=== PATIENT | female | born 1955 | race Caucasian/White ===

== ENCOUNTER 2021-02-04 12:39 | Outpatient (REF) | payer OTHER, SELFPAY ==
[2021-02-04 13:01] LABS: MANUAL DIFF FLAG NO
[2021-02-04 13:46] LABS: Basophils Percent Auto 0.7 % (0-2); Eosinophils Percent Auto 0.7 % (0-4); Hematocrit 36.8 % (37.0-47.0); Hemoglobin 12.2 g/dl (12.0-16.0); Imm Gran Abs Auto 0.01 X10*3/uL (0.00-0.03); Imm Gran Pct Auto 0.3 % (0.0-0.4); Lymphocytes Absolute Auto 0.8 X10*3/uL (1.2-4.9); Lymphocytes Percent Auto 26.8 % (20-40); Mean Corpuscular HGB Conc 33.2 g/dl (31.0-35.0); Mean Corpuscular Volume 96.6 fL (80.0-98.0); Mean Platelet Volume 9.9 fL (9.4-12.3); Monocytes Absolute Auto 0.3 X10*3/uL (0.1-1.2); Monocytes Percent Auto 11.3 % (2-11); Neutrophils Absolute Auto 1.8 x10*3/uL (2.0-8.3); Neutrophils Percent Auto 60.2 % (45-73); Platelet Count 226 X10*3/uL (160-400); Red Blood Count 3.81 X10*6/uL (4.20-5.50)
[2021-02-04 14:26] LABS: Anion Gap 12 (12-20); Blood Urea Nitrogen 10 mg/dL (9-16); Calcium 9.6 mg/dL (8.4-10.2); Carbon Dioxide 27 mmol/L (22-29); Chloride 105 mmol/L (96-108); Estimated Glomerular Filt Rate > 60; Glucose Random 97 mg/dL (60-115); Potassium 4.2 mmol/L (3.3-5.1); Sodium 140 mmol/L (135-145)
[2021-02-04 15:24] LABS: T4 Thyroxine 7.1 ug/dL (4.5-12.0)
[2021-02-04 16:23] LABS: Folate > 20.0 ng/mL (> or = 4.0); Vitamin B12 720 pg/mL (200-900)
== END 2021-02-04 12:40 | disposition home or self-care (01) ==
LOC: HO.LAB 12:39
PROVIDERS: PCP Internal Medicine; Visit Provider Psychiatry & Neurology Neurology
DX: G31.84 Mild cognitive impairment of uncertain or unknown etiology (principal)
CPT/HCPCS: 36415; 80048; 82607; 82746; 84436; 84443; 85025

== ENCOUNTER 2024-09-10 10:04 | Outpatient (REF) | payer MEDICARE, SELFPAY ==
--- OUTSIDE RECORDS SUMMARY | 2024-09-10 10:43 | XMS_ITS | Clinical Summary ---
Author Organization [facility] Address [address], [place] Phone Care Team Providers Care Direct Care Worker Name Role Phone Venkata Dent MD Primary Care Provider [phone] Allergies Active Allergy Reactions Criticality Noted Date Comments Penicillins 02/10/2006 Medications calcium carbonate/vitamin D3 (CALCIUM + D ORAL) Take by mouth daily. Active diphenhydramine HCl (BENADRYL ALLERGY ORAL) Take by mouth. Active cyanocobalamin (VITAMIN B-12) 100 mcg tablet Take 1,000 mcg by mouth daily. 9 Active ibuprofen (ADVIL,MOTRIN) 200 mg tablet Take 200 mg by mouth every 6 hours as needed. Active memantine (NAMENDA) 10 mg tablet TAKE 1 TABLET BY MOUTH TWICE DAILY 3 Active PNV no.95/ferrous fum/folic ac ( MULTIVITAMINS ORAL) Take by mouth. Active ascorbic acid (VITAMIN C ORAL) 1 tablet occ Active QUEtiapine (SEROquel) 25 mg tablet Take 1 tablet (25 mg total) by mouth 2 (two) times a day. Active aspirin-acetamino phen-caffeine (EXCEDRIN MIGRAINE) 250-250-65 mg per tablet Take 1 tablet by mouth every 6 (six) hours if needed for headaches. Active nystatin-triamcin olone (MYCOLOG II) ointment Apply a thin layer to affected area nightly 15 g 1 5 Active nystatin-triamcin olone (MYCOLOG II) ointment Apply a thin layer to affected area nightly 15 g 4 08/14/19 25 Discontin ued(Reord er) Active Problems Problem Noted Date Diagnosed Date OAB (overactive bladder) 02/06/2024 Assessment & Plan (02/06/2024 1:02 PM EST): Continue to follow with Urology. Feeling of incomplete bladder emptying Overview (12/24/2023): Last Assessment & Plan: I recommended she try double voiding. No evidence of prolapse. She declined referral to Urology for now. If this continues to be an issues and is not improved after starting LS treatment, can refer to Urology. Hemorrhoidal skin tag 04/25/2023 Overview (12/24/2023): Last Assessment & Plan: Reassured not worrisome. Lichen sclerosus 04/25/2023 Overview (12/24/2023): Last Assessment & Plan: Reviewed findings with patient. Well controlled. I reviewed the importance of regular maintenance topical steroid use to prevent symptoms, further scarring, and squamous cell cancer of the vulva. I also explained the importance of regular follow up to ensure she has no evidence of precancerous or cancerous changes and that she is not having side effects from her medication. I reviewed areas of application and amount of medication to use. She will continue nightly Mycolog and will add AM Vaseline or coconut oil as a skin barrier to avoid occasional daytime burning. Assessment & Plan (02/06/2024 10:08 AM EST): Reviewed findings with patient. Currently well controlled. I reviewed the importance of regular maintenance topical steroid use and at least yearly follow up. She will continue nightly Mycolog. I did encourage her to add a skin barrier to help with occasional skin burning during urination. She will try this. Microscopic hematuria 04/25/2023 Overview (12/24/2023): Last Assessment & Plan: Will repeat UA today, as well as cytology and culture. Referred to Urology to follow up on this and also her urgency and frequency. She was informed that she should hear back in 1-2 weeks with an appointment date. If not, she should call back to our office and inquire on getting this arranged. She voiced understanding and agreed. DNR (do not resuscitate) 05/10/2022 Late onset Alzheimer's demen tia without behavioral disturbance, psychotic disturbance, mood disturbance, or anxiety ([facility] V24, [facility] V28) 05/10/2022 Elevated BP without diagnosis of hypertension Assessment & Plan (02/06/2024 1:02 PM EST): Referred to PCP for evaluation and management Kyphoscoliosis 09/07/2018 Night sweats 09/07/2018 Vitamin D deficiency 12/29/2016 Paresthesia of hand, bilateral 12/23/2015 Osteoporosis 12/03/2014 Overview (12/24/2023): Refuses med. Takes Ca, vit D Blood in stool 01/18/2011 Overview (12/24/2023): x1 Migraines 08/21/2010 Fel[place]'s syndrome [place] [place] [facility] [place]) 01/14 Kyphosis deformity of spine 07/05/2005 Immunizations Name Administration Dates Next Due H1N1 Inj Preservative Free 03/11/2009 Influenza Quadravalent, MDCK , 0.5ml, preservative free (Flucelvax) 6mo and older 12/03/2020,11/16/2018 Influenza Quadravalent, MDCK , 0.5ml, with preservative (Flucelvax) 6mo and older 11/21/2021,11/24/2019,12/04/2017,12/23,11/29/2015 Influenza trivalent, with pr eservative (Fluzone; Afluria) 6mo and older 12/09/2012,12/06/2010,12/18/2009,03/11,12/28/2007,12/24/2006,02/10/2006 Influenza, Unspecified 12/27/2022,11/29/2015, Pfizer (ages 12 & older) Biv alent, COVID-19 12/28/2021 Pneumococcal conjugate 20 va lent (Prevnar 20, PCV 20) 2mo and older 02/10/2023 Pneumococcal polysaccharide 23 valent (Pneumovax 23) 2yo and older 02/21/2007 Tdap Tetanus diptheria acell ular pertussis (Boostrix; Adacel) 7yo and older 02/10/2023,06/27/2012 Zoster recombinant (Shingrix ) 19yo and older 09/24/2019,05/23/2019 Surgical History Surgery Date Site/Laterality Comments OVARIAN CYST REMOVAL PROCEDURE: NC OVARIAN CYSTECTOMY UNI/BI; COMMENT: also appendectomy TONSILLECTOMY childhood PROCEDURE: HISTORICAL TONSILLECTOMY Medical History Medical History Date Comments Migraines DX:Migraines Aplastic anemia ([facility] V24) 1975 DX :Aplastic anemia ([facility]); COMMENT: per pt - BMBx by Dr. De Leon in [place]. treated with androgens Paresthesia of hand, bilateral 12/23/2015 D X:Paresthesia of hand, bilateral Osteoporosis 12/03/2014 DX:Osteoporosis; COMMENT: Refuses med. 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[facility]) Kyphosis deformity of spine 07/05/2005 DX:K yphosis deformity of spine Hematochezia 01/18/2011 DX:Hematochezia; COMMENT: x1 Elevated BP without diagnosi s of hypertension 09/07/2018 DX:Elevated BP without diagn osis of hypertension Night sweats 09/07/2018 DX:Night sweats Kyphoscoliosis 09/07/2018 DX:Kyphoscoliosi s Family History Medical History Relation Name Comments Diabetes Brother Coronary artery disease Father Other: skin disorder Father y oung , no detail, eczemia of the skin , skin opened Colon polyps Maternal Grandmother she garcía sn't think cancer but he did have surgery Coronary artery disease Mother Other: diabetes Mother around 72 Breast cancer Sister 1 undergoing hayder mo 2015; diabetes Colon cancer Neg Hx Ovarian cancer Neg Hx Relation Name Status Comments Brother Alive blood clot, hig h cholesterol, DM, elevated liver enzymes Father Septicemia, hea rt disease, fusion fractures on back Maternal Grandmother Alive Mother 2008, kidney fa ilure, HTN, CHF, PVD, DM, [place] Sister 1 Alive Sister 2 Alive Sister 3 Alive Social History Tobacco Use Types Packs/Day Years Used Date Smoking Tobacco: Former Smokeless Tobacco: Never Tobacco Cessation:Counseling Given: Not Answered Alcohol Use Standard Drinks/Week Comments Yes 0 (1 standard drink = 0.6 oz pur e alcohol) Comments No Sex and Gender Information Value Date Recorded Sex Assigned at Not on file Legal Sex Female 11:09 AM EST Gender Identity Not on file Sexual Orientation Not on file Obstetrics History Para Term AB IAB SAB Ectopic Multiple Livin g Live Births 0 0 0 0 0 0 0 0 0 0 0 Last Filed Vital Signs Vital Sign Reading Time Taken Comments Blood Pressure 134/74 05/09/2024 9:28 AM EST Pulse 70 05/09/2024 9:28 AM EST Temperature 36.4 C (97.6 F) 05/09/2024 9:28 AM EST Respiratory Rate 14 05/09/2024 9:28 AM EST Oxygen Saturation 99% 05/09/2024 9:28 AM EST Inhaled Oxygen Concentration - - Weight 65 kg (143 lb 6.4 oz) 05/09/2024 9:28 AM EST Height 167.6 cm (5' 6 ) 05/09/2024 9:28 AM EST Body Mass Index 23.15 05/09/2024 9:28 AM EST Plan of Treatment Upcoming Encounters Date Type Department Care Team (Late st Contact Info) Description 11/03/2024 10:30 AM EDT Appointment Radiology Department - [address] [phone] 11/28/2024 8:45 AM EDT Office Visit Adult Medicine [address] [phone] Venkata Dent MD [address] [place] [address] Health Maintenance Due Date Last Done Comments Colorectal Cancer Screening: Colonoscopy 02/20/2022 Social Influencers of Health Screening 02/20/2022 COVID-19 Vaccine ( season) 2023 12/28/2021, 01/16/2021, 07/03/2020, Additional history exists Depression Screening 02/11/2024 02/10/2023 Falls Risk Assessment 02/11/2024 02/10/2023 Medicare Annual Wellness Visit 02/11/2024 02/10/2023 Breast Cancer Screening 10/21/2025 10/22/19 24, 10/22/2023, 09/04/2022, Additional history exists Cholesterol Screening (Lipid Panel) 08/24/2027 08/23/2022 Osteoporosis Screening (Bone Density Screening) 02/20/2031 02/20/2021, 08/18/2018, 01/27/2017 RSV Immunization Adult Patients (1 - 1-dose 75+ series) 2032 DTaP,Tdap,and Td Vaccines (3 - Td or Tdap) 02/10/2033 02/10/2023, 06/27/2012 Hepatitis C Screening Completed 09/22/2013 Zoster Vaccines Completed 09/24/2019, 05/23/2019 Pneumococcal Vaccine: 50+ Years Completed 02/10/2023, 02/21/2007 Influenza Vaccine Completed 12/22/2023, , 12/20/2022, Additional history exists HIB Vaccines Aged Out No longer eligi ble based on patient's age to complete this topic HPV Vaccines Aged Out No longer eligi ble based on patient's age to complete this topic Hepatitis A Vaccines Aged Out No long er eligible based on patient's age to complete this topic Hepatitis B Vaccines Aged Out No long er eligible based on patient's age to complete this topic IPV Vaccines Aged Out No longer eligi ble based on patient's age to complete this topic MMR Vaccines Aged Out No longer eligi ble based on patient's age to complete this topic Meningococcal ACWY Vaccine Aged Out N o longer eligible based on patient's age to complete this topic Meningococcal B Vaccine Aged Out No l onger eligible based on patient's age to complete this topic RSV Immunization Patients Under 20 months Aged Out No longer eligible based on patient's age to complete this topic Varicella Vaccines Aged Out No longer eligible based on patient's age to complete this topic Procedures Procedure Name Priority Date/Time Associated Diagnosis Comments SCREENING MAMMOGRAPHY BI 2-VIEW BREAST INC CAD Routine 10/22/2023 10:02 AM EDT Encounter for screening mammogram for malignant neoplasm of breast DEPRESSION SCREENING Routine 02/10/2023 FALLS RISK ASSESSMENT Routine 02/10/2023 LIPID PANEL Routine 08/23/2022 DXA BONE DENSITY STUDY 1+ SITS AXIAL SKEL Routine 02/20/2021 2:30 PM EST Encounter for general adult medical examination without abnormal findings HEPATITIS C SCREENING Routine 09/22/2013 from Last 3 Months or Most Recently Relevant to Health Maintenance Results * SCREENING MAMMOGRAPHY BI 2-VIEW BREAST INC CAD (10/22/2023 10:02 AM EDT) Anatomical Region Laterality Modality Radiographic Ruth ging 09/04/2022 10:0 8 AM EDT Narrative 10/24/2023 10:17 AM EDT This is a summary report. The complete report is available in the patient's medical record. If you cannot access the medical record, please contact the sending organization for a detailed fax or copy. Exam: Screening mammogram Findings: Digital bilateral full-field screening mammography is performed with tomosynthesis and interpreted with the aid of computer-aided detection. Comparison is made with 09/04/2022 and as far back as 08/23/2020. Breast parenchyma is heterogeneously dense, which may obscure small masses. No new suspicious mass, architectural distortion, or suspicious calcifications. Impression: No mammographic evidence of malignancy. BI-RADS 1 - negative Procedure Note Susan Jarvis MD - 12/28/2023 This is a summary report. The complete report is available in thepatient's medical record. If you cannot access the medical record, pleasecontact the sending organization for a detailed fax or copy. Exam: Screening mammogram Findings: Digital bilateral full-field screening mammography is performedwith tomosynthesis and interpreted with the aid of computer-aideddetection. Comparison is made with 09/04/2022 and as far back as08/23/2020. Breast parenchyma is heterogeneously dense, which may obscure smallmasses. No new suspicious mass, architectural distortion, or suspiciouscalcifications. Impression: No mammographic evidence of malignancy. BI-RADS 1 - negative Venkata Dent MD IMG XR PROCEDURES Final Result * Falls Risk Assessment (02/10/2023) Pathologist [facility] Falls Risk Assessment abstracted Result [facility] HEALTH MAINTENANCE Final Result * Depression Screening (02/10/2023) Pathologist [facility] Depression Screening abstracted Result [facility] HEALTH MAINTENANCE Final Result * (ABNORMAL) Lipid panel (08/23/2022) Pathologist [facility] LDL/HDL Ratio 2 0 - 4 Triglycerides 68 0 - 150 mg/dL Cholesterol 245(A) 0 - 200 mg/dL HDL 112 >=40 mg/dL LDL Cholesterol 120(A) 0 - 100 mg/dL Blood Venous blood specimen / Unknown Result [facility] Provider LAB BLOOD ORDERABLES Trinidad l Result * DXA BONE DENSITY STUDY 1+ SITS AXIAL SKEL (02/20/2021 2:30 PM EST) Anatomical Region Laterality Modality Bone Densitometr y 12/03/2020 12:0 8 PM EDT Narrative 02/20/2021 6:28 PM EST BONE DENSITY Lumbar Spine T-score is -3.1 (SD relative to 20-29 y/o adult) Z-score is -1.4 (SD relative to age matched peers) This is consistent with osteoporosis by criteria defined by the WHO. Left Hip T-score is -2.4 Z-score is -1.3 This is consistent with osteopenia by criteria defined by the WHO. Comparison exam(s): no statistically significant change in the bone density of the hip and lumbar spine when compared to most recent bone density examination Confidence level is +/-95%. Impression: Based on the World Health Organization criteria, Negin Smith should be classified as having osteoporosis. The [facility] Department of Internal Medicine recommends using National Osteoporosis Foundation (NOF) guidelines in treatment decisions related to osteoporosis. NOF guidelines suggest considering treatment for postmenopausal women and men aged 50 or older presenting with the following: History of hip or vertebral fracture. T-score less than or equal to -2.5 (DXA) at the femoral neck, total hip, or spine, after appropriate evaluation to exclude secondary causes. Low bone mass (T-score between -1.0 and -2.5 at the femoral neck or spine) AND a 10-year probability of a hip fracture greater than or equal to 3% OR a 10-year probability of a major osteoporosis-related fracture greater than or equal to 20% based on the [place]-adapted WHO algorithm Please note that all treatment decisions require clinical judgment and consideration of individual patient factors, including patient preferences, co-morbidities, previous drug use, risk factors not captured in the FRAX model (e.g., frailty, falls, vitamin D deficiency, increased bone turnover, interval significant decline in bone density) and possible under- or over-estimation of fracture risk by FRAX. Procedure Note Kanika Nieves MD - 03/02/2022 BONE DENSITY Lumbar Spine T-score is -3.1 (SD relative to 20-29 y/o adult) Z-score is -1.4 (SD relative to age matched peers) This is consistent with osteoporosis by criteria defined by the WHO. Left Hip T-score is -2.4 Z-score is -1.3 This is consistent with osteopenia by criteria defined by the WHO. Comparison exam(s): no statistically significant change in the bonedensity of the hip and lumbar spine when compared to most recent bonedensity examination Confidence level is +/-95%. Impression: Based on the World Health Organization criteria, Negin Smith should beclassified as having osteoporosis. The [facility] Department of Internal Medicine recommendsusing National Osteoporosis Foundation (NOF) guidelines in treatmentdecisions related to osteoporosis. NOF guidelines suggest consideringtreatment for postmenopausal women and men aged 50 or older presentingwith the following: History of hip or vertebral fracture. T-score less than or equal to -2.5 (DXA) at the femoral neck, total hip,or spine, after appropriate evaluation to exclude secondary causes. Low bone mass (T-score between -1.0 and -2.5 at the femoral neck or spine)AND a 10-year probability of a hip fracture greater than or equal to 3% ORa 10-year probability of a major osteoporosis-related fracture greaterthan or equal to 20% based on the [place]-adapted WHO algorithm Please note that all treatment decisions require clinical judgment andconsideration of individual patient factors, including patientpreferences, co-morbidities, previous drug use, risk factors not capturedin the FRAX model (e.g., frailty, falls, vitamin D deficiency, increasedbone turnover, interval significant decline in bone density) and possibleunder- or over-estimation of fracture risk by FRAX. Venkata Dent MD IM DXA PROCEDURES Final Result * Hepatitis C Screening (09/22/2013) [facility] Hepatitis C Screening abstracted Historical Provider HEALTH MAINTENANCE Final Result from Last 3 Months or Most Recently Relevant to Health Maintenance Insurance MEDICARE [facility] Care Teams Direct Care Worker Relationship Specialty Start Date End Date Venkata Dent MD [address] [place] [address] PCP - General Internal Medicine 07/28/20
[2024-09-10 10:55] LABS: Hematocrit 35.8 % (37.0-47.0); Hemoglobin 11.8 g/dl (12.0-16.0); Mean Corpuscular Hemoglobin 31.2 pg (27.0-33.0); Mean Corpuscular Volume 94.7 fL (80.0-98.0); Mean Platelet Volume 9.5 fL (9.4-12.3); Platelet Count 218 X10*3/uL (160-400); Red Blood Count 3.78 X10*6/uL (4.20-5.50); Red Cell Distribution Width 14.1 % (11.0-16.0); White Blood Count 4.4 X10*3/uL (4.8-10.8)
[2024-09-10 11:31] LABS: Erythrocyte Sedimentation Rate 18 MM/HR (0-20)
[2024-09-10 11:47] LABS: Calcium 9.2 mg/dL (8.4-10.2); Magnesium 2.1 mg/dL (1.6-2.6); Phosphorus 2.8 mg/dL (2.7-4.5)
[2024-09-10 12:09] LABS: TSH reflex Free T4 1.66 uIU/mL (0.32-4.0)
[2024-09-13 13:24] LABS: Aldolase 5.4 U/L (<=8.1)
== END 2024-09-10 10:05 | disposition home or self-care (01) ==
LOC: HO.LAB 10:04
PROVIDERS: PCP Internal Medicine; Visit Provider Registered Nurse
DX: R25.2 Cramp and spasm (principal)
CPT/HCPCS: 36415; 82085; 82310; 82550; 83735; 84100; 84443; 85027; 85652

== ENCOUNTER 2024-11-01 09:51 | Outpatient (AMB) | payer MEDICARE, SELFPAY ==
--- OUTSIDE RECORDS SUMMARY | 2024-04-04 05:00 | XMS_ITS ---
Author Organization [facility] Address [address] [place] [id number] Care Team Providers Care Water Resources Business Segment Leader Name Role Phone Jailene OLIVER, Venkata Stanford Primary Care Provider Unav ailable Mary Contreras [phone] Encounters Encounter Location Date Provider Diagnosis [address] [phone] 04/04/2024 Mary Contreras Plan Of Treatment Next Appt Details Provider Name:Mary ivy, 12/14/2024 09:00:00 AM, [address] [place] [address], [phone], Progress Notes * Negin SMITH LDOB: [birth year] (68 yo F)Acc No.[id number]:04/04/2024 Progress Note Patient: Negin HEART Provider: Aguilar Contreras DPM :1955 A ge:68 Y S ex:Female Date:04/04/2024 Address:[address] [place] [address], [id number] Pcp:Venkata Dent MD Subjective: * Chief Complaints: [...] 0 04/04/2024 Generated for Zen ferreira/Kiersten/Red on: 0 11/01/2024 11:10 AM EDT
--- NOTE | 2024-11-01 09:56 | A.OFFVIS_ITS ---
Intake Visit Reasons: 2m tremor mci Accompanied by: Sister Allergies Penicillins (PCN) Adverse Reaction (Unknown, Unverified 11/01/24 10:11) UNKNOWN Medication List - Last Reconciled 11/01/24 by Kenyatta Middleton CNP carbidopa-levodopa 25-100 mg (Sinemet) 1 tab PO TID 90 days haloperidol 1 mg PO BEDTIME memantine 10 mg PO BID primidone 50 mg PO BEDTIME sertraline 50 mg PO BEDTIME HPI Comments Details: She was here with her sister. Her sister lives in in-law apartment upstairs. She was doing okay. Memory was not that good. Forgetful and misplaces things around the house. Her sister was helping her manage her medications and would remind her to take medications. No recent hallucinations. Tremor in hands was better with primidone, no medication side effects. Shaking in hands was less when doing yariel art now and she found the activity to be relaxing. No functional impairment. No difficulty eating, drinking, or swallowing. Still having shaking in right leg throughout the day and occasionally in the left at night. No difficulty turning in bed or getting up from chair. Occasional muscle spasms in legs are better. Walking about 2 miles almost every day, going to [employer] and doing exercises. No falls. Some trouble maintaining sleep. Previously, with?carbidopa-levodopa 25-100mg 1/2 tablet three times a day, shaking in right leg was still there, some days better than others, and occasionally in left leg. Some shaking in hands when held in extended position. No difficulty eating, drinking, or swallowing. Going for walk most days with sister who has noted that she is moving slower, takes smaller steps, and does not swing arms. Some trouble getting up from chair and turning in bed. No falls. Says she forgot how to walks down steps and needs to take one stair at a time. No family history of tremors. Has been having shaking in right leg since early 2024, worse at times than others and sometimes will just be in her toes. Some shaking in her left foot, particularly her toes as well. Some shaking in her hands when held out in an extended position. No difficulty eating, drinking, or swallowing. She says she cannot control the shaking and cannot get it to stop. No family history of tremors. She has some trouble turning in bed and getting up from chair. Her sister has noticed that she seems to be moving slower. She has some cramping pains in her legs. She saw PCP who ordered labs which were apparently okay. Mood is better with medications. No longer crying. She is not as argumentative or agitated. Occasionally, she thinks people are in the house, but knows no one is really there. She says she feels relax and does not feel anxious or nervous. Sleep is better, but still wakes to use bathroom. Previously, she had periods of crying for no reason. Gets nervous at times. Increased anxiety and depression. Occasionally feels tired. Sleeps 4 hours, wakes up to use bathroom, and feels there are people stealing from her. May take 1-2 hours to fall back to sleep. She has been noted to have short-term memory problems since around 2019 that have slowly gotten worse. Walks in the morning and goes to senior center. Forgets names and conversations, repeats herself frequently. Has to write notes, forgets appointments, has trouble balancing checkbook. Does not get lost and is able to do routine work without much problem. Paternal grandfather had dementia in 80s. Some dyslexia and has trouble doing numbers. In the past, she was diagnosed with aplastic anemia that has been in remission for many years. Feels like someone is watching her. [facility] Medical History (Updated 11/01/24 @ 10:03 by Kenyatta Middleton CNP) Depression Psychosis Paranoia MCI (mild cognitive impairment) Review of Systems Const Denies chills, Denies daytime sleepiness, Reports difficulty sleeping, Reports fatigue, Denies fever(s), Denies frequent falls, Denies headache(s), Denies increased appetite, Denies poor appetite, Denies snoring, Denies weakness, Denies weight gain and Denies weight loss Eyes Denies loss of vision ENT Denies vertigo, Denies dizziness, Denies headache(s) and Reports neck pain Card Denies chest pain at rest, Denies chest pain with activity, Denies syncope, Denies leg edema, Denies palpitations, Denies dyspnea and Denies dyspnea on exertion Resp Denies cough, Denies dyspnea, Denies dyspnea on exertion and Denies snoring GI Denies abdominal pain, Denies constipation, Denies heartburn, Denies diarrhea and Denies nausea Denies urinary frequency, Denies urinary incontinence and Denies urinary urgency Musc Denies abnormal gait, Reports back pain, Denies myalgias, Reports arthralgias, Reports neck pain, Denies numbness and Denies tingling Neuro Denies abnormal gait, Denies vertigo, Denies dizziness, Denies syncope, Denies frequent falls, Denies headache(s), Denies lack of coordination, Denies loss of vision, Reports memory loss, Denies numbness, Denies Other visual disturbances, Denies restless legs, Denies seizure-like activity, Denies tingling, Denies paresthesias, Reports tremor(s) and Denies weakness Psych Reports anxiety, Reports depression, Denies auditory hallucinations, Reports memory loss and Denies visual hallucinations Endo Reports fatigue and Denies palpitations Physical Exam Const Other: General Appearance:? normal, in no acute distress. Heart:? S1, S2 normal, no murmurs. Lungs:? clear anteriorly and posteriorly. Musculoskeletal:? normal. Extremities:? no edema. Psych:? alert, as below. Neuro Other: Abnormal Neurological Findings:?MMS 24/30.?Resting tremor in legs R > L. Mild tremors in hands on sustained posture. Cogwheeling rigidity in bilateral hands L > R. Reduced facial expressions.?Decreased arm swing bilaterally and forward leaning posture.? Mental Status: alert, as below Cranial Nerves: Pupils are equal, round, and reactive to light. External ocular muscles are intact. Visual garcia are full, no ptosis. Face is symmetrical, no facial weakness or droop. Facial sensations are normal. Tongue protrudes in midline. Palate elevates symmetrically. Shoulder shrugging is normal Motor Examination: Normal muscle tone, bulk and strength. No atrophy or fasciculations. No drift of the extended upper extremities. DTR 2+. Plantars are flexor. Sensory Exam: Normal light touch, temperature, pinprick, vibration, and joint- position sensations. Rhomberg sign is absent. Coordination: No ataxia. No titubation. Gait Exam: As above. Cerebellar Signs: [id number] is okay. Extrapyramidal System: Resting tremor in legs R > L. Mild tremors in hands on sustained posture. Cogwheeling rigidity in bilateral hands L > R. Reduced facial expressions.?Decreased arm swing bilaterally and forward leaning posture. No bradykinesia, no bradyphrenia. No propulsion or retropulsion.? Speech: Normal. Results Reviewed Results Reviewed: Laboratory Tests 09/10/24 10:27 WBC 4.4 L RBC 3.78 L Hgb 11.8 L Hct 35.8 L MCV 94.7 MCH 31.2 MCHC 33.0 RDW 14.1 Plt Count 218 MPV 9.5 Absolute Nucleated RBC 0.000 Nucleated RBC % (auto) 0.0 ESR 18 Calcium 9.2 Phosphorus 2.8 Magnesium 2.1 Total Creatine Kinase 232 H Aldolase 5.4 TSH 1.66 08/2024 Katie scan at [facility] [place]: Negative Assessment & Plan Assessment & Plan (1) MCI (mild cognitive impairment): Code(s): G31.84 - Mild cognitive impairment of uncertain or unknown etiology Category: Medical Plan: Continue memantine 10mg 1 tablet twice a day. Stay physically and socially active. (2) Parkinsonism: Code(s): G20.C - Parkinsonism, unspecified Category: Medical Qualifiers: Parkinsonism type: unspecified Qualified Code(s): G20.C - Parkinsonism, unspecified Plan: Continue carbidopa-levodopa 25-100mg 1 tablet three times a day. (3) Tremor: Code(s): R25.1 - Tremor, unspecified Category: Medical Plan: Continue primidone 50mg 1 tablet at bedtime. (4) Depression: Code(s): F32.A - Depression, unspecified Category: Medical Qualifiers: Depression Type: unspecified Qualified Code(s): F32.A - Depression, unspecified Plan: Continue sertraline 50mg 1 tablet daily. (5) Psychosis: Code(s): F29 - Unspecified psychosis not due to a substance or known physiological condition Category: Medical Qualifiers: Psychosis type: unspecified psychosis type Qualified Code(s): F29 - Unspecified psychosis not due to a substance or known physiological condition Plan: Continue haloperidol 1mg 1 tablet at bedtime. Medications: New haloperidol 1 mg PO BEDTIME 90 tabs 1RF 90 days sertraline 50 mg PO BEDTIME 90 tabs 1RF 90 days primidone 50 mg PO BEDTIME 90 tabs 1RF 90 days Coding Level of Care Code Est Pt Level 4 (91564) Diagnoses MCI (mild cognitive impairment) G31.84 Parkinsonism, unspecified Parkinsonism type G20.C Parkinsonism type: unspecified Tremor R25.1 Depression, unspecified depression type F32.A Depression Type: unspecified Psychosis, unspecified psychosis type F29 Psychosis type: unspecified psychosis type
--- OUTSIDE RECORDS SUMMARY | 2024-11-01 11:10 | XMS_ITS | Clinical Summary ---
Author Organization [facility] [address] [facility] Address [address], [place] Phone Care Team Providers Care Head Chopper Name Role Phone Venkata Dent MD Primary Care Provider [phone] Allergies Active Allergy Reactions Criticality Noted Date [...] PNV no.95/ferrous fum/folic ac ( MULTIVITAMINS ORAL) Active ascorbic acid (VITAMIN C ORAL) 1 tablet occ Active QUEtiapine (SEROquel) 25 mg tablet Take 1 tablet (25 mg total) by mouth 2 (two) times a day. Active aspirin-acetaminop hen-caffeine (EXCEDRIN MIGRAINE) 250-250-65 mg per tablet Take 1 tablet by mouth every 6 (six) hours if needed for headaches. Active nystatin-triamcino lone (MYCOLOG II) ointment Apply a thin layer to affected area nightly 15 g 1 5 Active predniSONE (DELTASONE) 10 mg tablet Take 2 tabs PO daily for 3 days then 1 tab PO daily for 4 days 10 tablet 5 Active Active Problems Problem Noted Date Diagnosed Date [...] disturbance, psychotic disturbance, mood disturbance, or anxiety ([facility] V24, [facility] V28) 05/10/2022 Elevated BP without diagnosis of hypertension Assessment & Plan (02/06/2024 1:02 PM EST): Referred to PCP for evaluation and management Kyphoscoliosis 09/07/2018 Night sweats 09/07/2018 Vitamin D deficiency 12/29/2016 Paresthesia of hand, bilateral 12/23/2015 Osteoporosis 12/03/2014 Overview (12/24/2023): Refuses med. 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 deformity of spine 07/05/2005 Encounters Date Type Department Care Team Description 10/10/2024 9:30 AM EDT Office Visit Adult Medicine [address] [phone] Samina Balbuena PA Acute gout of right foot, unspecified cause (Primary Dx) from Last 3 Months Immunizations Name Administration Dates Next Due H1N1 [...] Date Site/Laterality Comments OVARIAN CYST REMOVAL PROCEDURE: LA OVARIAN CYSTECTOMY UNI/BI; COMMENT: also appendectomy TONSILLECTOMY childhood PROCEDURE: HISTORICAL TONSILLECTOMY Medical History Medical History Date Comments Migraines DX:Migraines Aplastic anemia ([facility] V24) 1975 DX :Aplastic anemia ([facility]); COMMENT: per pt - BMBx by Dr. De Leon in [place]. treated with androgens Paresthesia of hand, bilateral 12/23/2015 D X:Paresthesia of hand, bilateral Osteoporosis 12/03/2014 DX:Osteoporosis; COMMENT: Refuses med. 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) Kyphosis deformity of spine 07/05/2005 DX:K yphosis [...] Breast cancer Sister 1 undergoing hayder mo 2016; diabetes Colon cancer Neg Hx Ovarian cancer Neg Hx Relation Name Status Comments Brother Alive blood clot, hig h cholesterol, DM, elevated liver enzymes Father Septicemia, hea rt disease, fusion fractures on back Maternal Grandmother Alive Mother 2008, kidney fa ilure, HTN, CHF, PVD, DM, [place] Sister 1 Alive Sister 2 Alive Sister [...] Sign Reading Time Taken Comments Blood Pressure 123/84 10/10/2024 9:25 AM EDT Pulse 96 10/10/2024 9:25 AM EDT Temperature 36.9 C (98.4 F) 10/10/2024 9:25 AM EDT Respiratory Rate 14 10/10/2024 9:25 AM EDT Oxygen Saturation 99% 05/09/2024 9:28 AM EST Inhaled Oxygen Concentration - - Weight 67.6 kg (149 lb) 10/10/2024 9:25 AM EDT Height 167.6 cm (5' 6 ) 10/10/2024 9:25 AM EDT Body Mass Index 24.05 10/10/2024 9:25 AM EDT Plan of Treatment Upcoming Encounters Date Type Department Care Team (Late st Contact Info) Description 11/03/2024 10:30 AM EDT Appointment Radiology Department - [address] [phone] 11/28/2024 8:45 AM EDT Office Visit Adult Medicine [address] [phone] Venkata Dent MD [address] [place] [id number] Health Maintenance Due Date Last Done Comments Colorectal Cancer Screening: Colonoscopy 02/20/2022 Social Influencers of Health Screening 02/20/2022 COVID-19 Vaccine ( season) 2023 12/28/2021, 01/16/2021, 07/03/2020, Additional history exists Falls Risk Assessment 02/11/2024 02/10/2023 Medicare Annual Wellness Visit 02/11/2024 02/10/2023 Depression Screening 03/14/2024 02/10/2023 Influenza Vaccine (#1) 2024 , 12/27/2022, 12/20/2022, Additional history exists Breast Cancer Screening 10/21/2025 10/22/19 24, 10/22/2023, [...] Pneumococcal Vaccine: 50+ Years Completed 02/10/2023, 02/21/2007 HIB Vaccines Aged Out No longer eligi [...] Result * Falls Risk Assessment (02/10/2023) Pathologist [facility] Falls Risk Assessment abstracted Result [facility] HEALTH MAINTENANCE Final Result * Depression Screening (02/10/2023) Pathologist [facility] Depression Screening abstracted Result [facility] Final Result * (ABNORMAL) Lipid panel (08/23/2022) Pathologist [facility] LDL/HDL Ratio 2 0 - 4 Triglycerides 68 0 - 150 mg/dL Cholesterol 245(A) 0 - 200 mg/dL HDL 112 >=40 mg/dL LDL Cholesterol 120(A) 0 - 100 mg/dL Blood Venous blood specimen / Unknown Result [facility] LAB BLOOD ORDERABLES Trinidad l Result * [...] should be classified as having osteoporosis. [facility] Department of Internal Medicine recommends using National [...] Smith should beclassified as having osteoporosis. [facility] Department of Internal Medicine recommendsusing National Osteoporosis [...] Final Result * Hepatitis C Screening (09/22/2013) [facility] Hepatitis C Screening abstracted Historical Provider HEALTH MAINTENANCE Final Result from Last 3 Months or Most Recently Relevant to Health Maintenance Insurance MEDICARE [facility] Care Teams Head Chopper Relationship Specialty Start Date End Date Venkata Dent MD [address] [place] [address] PCP - General Internal Medicine 07/28/20
--- OUTSIDE RECORDS SUMMARY | 2024-11-01 11:11 | XMS_ITS ---
Author Name [facility] Organization Unknown Care Team Organization Name Specialty Phone Email Start Date End Da te [facility] 10/31/2024 [facility] 01/19/2022 10/31/2023
== END 2024-11-01 10:31 | disposition home or self-care (01) ==
LOC: HO.HSM 09:51
PROVIDERS: PCP Internal Medicine; Visit Provider Registered Nurse
DX: G31.84 Mild cognitive impairment of uncertain or unknown etiology (principal); G20.C Parkinsonism, unspecified; R25.1 Tremor, unspecified; F32.A Depression, unspecified; F29 Unspecified psychosis not due to a substance or known physiological condition
CPT/HCPCS: 99214

== ENCOUNTER → 2024-11-01 09:51 | Outpatient (BNVA) | payer MEDICARE, SELFPAY | PROVIDERS: PCP Internal Medicine; Visit Provider Registered Nurse | DX: G31.84 Mild cognitive impairment of uncertain or unknown etiology (principal); G20.C Parkinsonism, unspecified; F32.A Depression, unspecified; F29 Unspecified psychosis not due to a substance or known physiological condition | CPT/HCPCS: 99212 ==

== ENCOUNTER 2025-03-04 08:55 | Outpatient (AMB) | payer MEDICARE, SELFPAY ==
--- OUTSIDE RECORDS SUMMARY | 2024-04-04 04:00 | XMS_ITS ---
Author Organization [facility] Address [address] [place] [id number] Care Team Providers Care Granulating Machine Operator Name Role Phone Jailene OLIVER, Venkata Stanford Primary Care Provider Unav ailable Mary Contreras [phone] Encounters Encounter Location Date Provider Diagnosis [address] [id number] 04/04/2024 Mary Contreras Plan Of Treatment Next Appt Details Provider Name:Mary ivy, 04/16/2025 09:00:00 AM, [address] [place] [address], [phone], Progress Notes * Negin SMITH LDOB: [birth year] (69 yo F)Acc No.[id number]:04/04/2024 Progress Note Patient: Negin HEART Provider: Aguilar Contreras DPM :1955 A ge:68 Y S ex:Female Date:04/04/2024 Address:[address] [place] [address], [id number] Pcp:Venkata Dent MD Subjective: * Chief Complaints: * * Medical History: Objective: * Vitals: Assessment: Plan: * Treatment: * Images: * The named appointment provid er may or may not be the originator of this progress note, and it is not deemed complete until electronically signed by the appointment provider. Sign off status: Pending * Provider: Aguilar Contreras DPM Date: 0 04/04/2024 Generated for Zen ferreira/Kiersten/Red on: 1 05/05/2024 09:37 AM EST
--- NOTE | 2025-03-04 08:59 | MHC.OFFVIS ---
Intake Visit Reasons: [facility] Accompanied by: Sister Allergies Penicillins (PCN) Adverse Reaction (Unknown, Unverified 03/04/25 09:01) UNKNOWN Medication List - Last Reconciled 03/04/25 by Kenyatta Middleton CNP amlodipine 2.5 mg PO DAILY carbidopa-levodopa 25-100 mg (Sinemet) 1 tab PO TID 90 days haloperidol 1 mg PO BEDTIME 90 days memantine 10 mg PO BID 90 days primidone 50 mg PO BEDTIME 90 days sertraline 50 mg PO BEDTIME 90 days HPI Comments Details: She was here with her sister. Her sister lives in in-law apartment upstairs. Her sister was helping her manage her medications and would remind her to take medications. She was doing okay. Memory was still forgetful. Forgetful and misplaces things around the house. Sometimes forgets if she locks her door and has to recheck. Feels more confused at night. No recent hallucinations. Tremor in hands was better with primidone, no medication side effects. She was still doing yariel art. No functional impairment. No difficulty eating, drinking, or swallowing. Still having shaking in right leg throughout the day and occasionally in the left at night. No difficulty turning in bed or getting up from chair. Occasional muscle spasms in legs are better. Going to [facility] and doing exercises. Not walking as much because of the weather. No falls. Sleep was up and down. Previously, with?carbidopa-levodopa 25-100mg 1/2 tablet three times a day, shaking in right leg was still there, some days better than others, and occasionally in left leg. Some shaking in hands when held in extended position. No difficulty eating, drinking, or swallowing. Going for walk most days with sister who has noted that she is moving slower, takes smaller steps, and does not swing arms. Some trouble getting up from chair and turning in bed. No falls. Says she forgot how to walks down steps and needs to take one stair at a time. No family history of tremors. Has been having shaking in right leg since early 2024, worse at times than others and sometimes will just be in her toes. Some shaking in her left foot, particularly her toes as well. Some shaking in her hands when held out in an extended position. No difficulty eating, drinking, or swallowing. She says she cannot control the shaking and cannot get it to stop. No family history of tremors. She has some trouble turning in bed and getting up from chair. Her sister has noticed that she seems to be moving slower. She has some cramping pains in her legs. She saw PCP who ordered labs which were apparently okay. Mood is better with medications. No longer crying. She is not as argumentative or agitated. Occasionally, she thinks people are in the house, but knows no one is really there. She says she feels relax and does not feel anxious or nervous. Sleep is better, but still wakes to use bathroom. Previously, she had periods of crying for no reason. Gets nervous at times. Increased anxiety and depression. Occasionally feels tired. Sleeps 4 hours, wakes up to use bathroom, and feels there are people stealing from her. May take 1-2 hours to fall back to sleep. She has been noted to have short-term memory problems since around 2019 that have slowly gotten worse. Walks in the morning and goes to [facility] center. Forgets names and conversations, repeats herself frequently. Has to write notes, forgets appointments, has trouble balancing checkbook. Does not get lost and is able to do routine work without much problem. Paternal grandfather had dementia in 80s. Some dyslexia and has trouble doing numbers. In the past, she was diagnosed with aplastic anemia that has been in remission for many years. Feels like someone is watching her. [facility] Medical History (Updated 11/01/24 @ 10:03 by Kenyatta Middleton CNP) Depression Psychosis Paranoia MCI (mild cognitive impairment) Review of Systems Const Denies chills, Denies daytime sleepiness, Reports difficulty sleeping, Reports fatigue, Denies fever(s), Denies frequent falls, Denies headache(s), Denies increased appetite, Denies poor appetite, Denies snoring, Denies weakness, Denies weight gain and Denies weight loss Eyes Denies loss of vision ENT Denies vertigo, Denies dizziness, Denies headache(s) and Reports neck pain Card Denies chest pain at rest, Denies chest pain with activity, Denies syncope, Denies leg edema, Denies palpitations, Denies dyspnea and Denies dyspnea on exertion Resp Denies cough, Denies dyspnea, Denies dyspnea on exertion and Denies snoring GI Denies abdominal pain, Denies constipation, Denies heartburn, Denies diarrhea and Denies nausea Denies urinary frequency, Denies urinary incontinence and Denies urinary urgency Musc Denies abnormal gait, Reports back pain, Denies myalgias, Reports arthralgias, Reports neck pain, Denies numbness and Denies tingling Neuro Denies abnormal gait, Denies vertigo, Denies dizziness, Denies syncope, Denies frequent falls, Denies headache(s), Denies lack of coordination, Denies loss of vision, Reports memory loss, Denies numbness, Denies Other visual disturbances, Denies restless legs, Denies seizure-like activity, Denies tingling, Denies paresthesias, Reports tremor(s) and Denies weakness Psych Reports anxiety, Reports depression, Denies auditory hallucinations, Reports memory loss and Denies visual hallucinations Endo Reports fatigue and Denies palpitations Physical Exam Const Other: General Appearance:? normal, in no acute distress. Heart:? S1, S2 normal, no murmurs. Lungs:? clear anteriorly and posteriorly. Musculoskeletal:? normal. Extremities:? no edema. Psych:? alert, as below. Neuro Other: Abnormal Neurological Findings:?MMS 24/30.?Resting tremor in legs R > L. Mild tremors in hands on sustained posture. Cogwheeling rigidity in bilateral hands L > R. Reduced facial expressions.?Decreased arm swing bilaterally and forward leaning posture.? Mental Status: alert, as below Cranial Nerves: Pupils are equal, round, and reactive to light. External ocular muscles are intact. Visual garcia are full, no ptosis. Face is symmetrical, no facial weakness or droop. Facial sensations are normal. Tongue protrudes in midline. Palate elevates symmetrically. Shoulder shrugging is normal Motor Examination: Normal muscle tone, bulk and strength. No atrophy or fasciculations. No drift of the extended upper extremities. DTR 2+. Plantars are flexor. Sensory Exam: Normal light touch, temperature, pinprick, vibration, and joint-position sensations. Rhomberg sign is absent. Coordination: No ataxia. No titubation. Gait Exam: As above. Cerebellar Signs: [id number] is okay. Extrapyramidal System: Resting tremor in legs R > L. Mild tremors in hands on sustained posture. Cogwheeling rigidity in bilateral hands L > R. Reduced facial expressions.?Decreased arm swing bilaterally and forward leaning posture. No bradykinesia, no bradyphrenia. No propulsion or retropulsion.? Speech: Normal. Results Reviewed Results Reviewed: 08/2024 labs at [facility]: WBC 4.4, anemia, CPK 232, aldolase 5.4 (ok), TSH ok 08/2024 Katie scan at [facility] [place]: Negative Assessment & Plan Assessment & Plan (1) MCI (mild cognitive impairment): Code(s): G31.84 - Mild cognitive impairment of uncertain or unknown etiology Category: Medical Plan: Continue memantine 10mg 1 tablet twice a day. Stay physically, socially, and intellectually active. (2) Parkinsonism: Code(s): G20.C - Parkinsonism, unspecified Category: Medical Qualifiers: Parkinsonism type: unspecified Qualified Code(s): G20.C - Parkinsonism, unspecified Plan: Increase carbidopa-levodopa 25-100mg 1 tablet four times a day. (3) Tremor: Code(s): R25.1 - Tremor, unspecified Category: Medical Plan: Continue primidone 50mg 1 tablet at bedtime. (4) Depression: Code(s): F32.A - Depression, unspecified Category: Medical Qualifiers: Depression Type: unspecified Qualified Code(s): F32.A - Depression, unspecified Plan: Continue sertraline 50mg 1 tablet daily. (5) Psychosis: Code(s): F29 - Unspecified psychosis not due to a substance or known physiological condition Category: Medical Qualifiers: Psychosis type: unspecified psychosis type Qualified Code(s): F29 - Unspecified psychosis not due to a substance or known physiological condition Plan: Continue haloperidol 1mg 1 tablet at bedtime. Plan Follow up in 3 months or sooner as needed. Medications: Changed From memantine 10 mg PO BID To memantine 10 mg PO BID 180 tabs 1RF 90 days From carbidopa-levodopa 25-100 mg (Sinemet) 1 tab PO TID 90 days 270 tabs 1RF To carbidopa-levodopa 25-100 mg (Sinemet) 1 tab PO QID 360 tabs 1RF 90 days Refilled carbidopa-levodopa 25-100 mg (Sinemet) 1 tab PO TID 90 days 270 tabs 1RF haloperidol 1 mg PO BEDTIME 90 tabs 1RF 90 days primidone 50 mg PO BEDTIME 90 tabs 1RF 90 days sertraline 50 mg PO BEDTIME 90 tabs 1RF 90 days Coding Level of Care Code Est Pt Level 4 (88696) Diagnoses MCI (mild cognitive impairment) G31.84 Parkinsonism, unspecified Parkinsonism type G20.C Parkinsonism type: unspecified Tremor R25.1 Depression, unspecified depression type F32.A Depression Type: unspecified Psychosis, unspecified psychosis type F29 Psychosis type: unspecified psychosis type
--- OUTSIDE RECORDS SUMMARY | 2025-03-04 09:37 | XMS_ITS | Patient Health Record ---
Author Organization [facility] Address [address] [place] [address] Care Team Providers Care Associate Merchandiser Name Role Phone Jailene OLIVER, Venkata Stanford Primary Care Provider Unaimelda Eatonbiju Mary Unavailable [phone] Allergies Allergen (clinical drug ingredient) Drug/Non Drug Allergy documented on EMR Reaction Allergy Type Onset Date Status Penicillin Feel sick to my stomach Drug Allergy Active Reason For Referral No Information Medications Medication SIG (Take, Route, Frequency, Duration) Notes Start Date End Date Status Carbidopa-Levodopa 10-100 MG 1 tablet Orally Three times a day Active Primidone 50 MG Oral; Duration: 90 Days Active amLODIPine Besylate 2.5 MG TAKE 1 TABLET BY MOUTH ONCE DAILY Oral; Duration: 30 Days Active Haloperidol 0.5 MG 1 tablet Orally Once a day Active Sertraline HCl 50 MG 1 tablet Orally Onc e a day Active Nystatin-Triamcinolone Active Memantine HCl 10 MG 1 tablet Orally Once a day Active Immunizations Vaccine Route Administration Date Status Comme nts Influenza Unknown 11/12/2024 Administered Social History Tobacco Use: Social History Observation Description Date Details (start date - stop date) Never Smoker NA - NA Tobacco use other than smoking: Question Answer Notes Are you an other tobacco user? No Tobacco Control (Standard) Question Answer Notes Tobacco use: Nonsmoker Additional Findings: Tobacco non-user Current no nsmoker AUDIT-C (Standard) Question Answer Notes Did you have a drink contain ing alcohol in the past year? Yes How often did you have a dri nk containing alcohol in the past year? Monthly or less (1 point) How many drinks did you have on a typical day when you were drinking in the past year? 1 or 2 drinks (0 point) How often did you have six o r more drinks on one occasion in the past year? Never (0 point) Points 1 Interpretation Negative Problems Problem Type SNOMED Code ICD Code Onset Dates Problem Status W/U Status Risk Notes Problem Acquired hammer toe of left foot ([id number]) Other hammer toe(s) (acquired), left foot (M20.42) Active confirmed Problem Hallux valgus of left foot ([id number]) Hallux valgus of left foot (M20.12) Active confirmed Vital Signs Heart Rate 75 /min 08/24/2024 Blood pressure diastolic 81 mm Hg 12/14/2024 Height 5ft6in in 12/14/2024 Blood pressure systolic 132 mm Hg 12/14/2024 Weight 147 lbs 12/14/2024 BMI 23.72 kg/m2 12/14/2024 Encounters Encounter Location Date Provider Diagnosis [address] [address] 05/25/2024 Mary Perica Tinea unguium B35.1 ; Pain in right toe(s) M79.674 and Pain in left toe(s) M79.[address] [address] 08/24/2024 Mary Perica Tinea unguium B35.1 ; Other hammer toe(s) (acquired), left foot M20.42 ; Pain in right toe(s) M79.674 ; Pain in left toe(s) M79.675 and Hallux valgus of left foot M20.[address] [address] 12/14/2024 Mary Perica Pain in right toe(s) M79.674 ; Onychomycosis B35.1 and Pain in left toe(s) M79.[address] [address] 03/12/2024 Mary Perica Assessments Encounter Date Diagnosis (ICD Code) Assessment Notes Treatment Notes Treatment Clinical Notes Section Notes 05/25/2024 Tinea unguium (ICD-10 - B35.1) 08/24/2024 Tinea unguium (ICD-10 - B35.1) 08/24/2024 Other hammer toe(s) (acquired), left foot (ICD-10 - M20.42) 12/14/2024 Pain in right toe(s) (ICD-10 - M79.674) 12/14/2024 Onychomycosis (ICD-10 - B35.1) 12/14/2024 Pain in left toe(s) (ICD-10 - M79.675) 05/25/2024 Pain in right toe(s) (ICD-10 - M79.674) 08/24/2024 Pain in right toe(s) (ICD-10 - M79.674) 05/25/2024 Pain in left toe(s) (ICD-10 - M79.675) 08/24/2024 Pain in left toe(s) (ICD-10 - M79.675) 08/24/2024 Hallux valgus of left foot (ICD-10 - M20.12) Plan Of Treatment Next Appt Details Provider Name:Mary ivy, 04/16/2025 09:00:00 AM, [address] [place] [address], [phone], Insurance Providers Payer Name Payer Address Payer Phone Subscriber Number Group Number Insured Name Patient Relationship to Insured Coverage Start Date Coverage End Date Medicare [employer] [address] [facility] [address] [id number] Negin Smith Self - patient is the insured Med [employer] [facility] [address] [place] [address] [id number] Negin Smith Self - patient is the insured Medical (General) History Medical History History ICD Code Anxiety Arthritis Back,Hip,and Knee pain Dementia Headaches/Migraines osteoarthritis Measles Mumps Chicken pox Parkinsons disease Surgical History Surgery Date(Month/Year) endometriosis Tonsil removal appendectomy
--- OUTSIDE RECORDS SUMMARY | 2025-03-04 09:37 | XMS_ITS | Clinical Summary ---
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 Active diphenhydramine HCl (BENADRYL ALLERGY ORAL) Take by mouth. Active cyanocobalamin (VITAMIN B-12) 100 mcg tablet Take 1,000 mcg by mouth daily. 9 Active ibuprofen (ADVIL,MOTRIN) 200 mg tablet Take 200 mg by mouth every 6 hours as needed. Active memantine (NAMENDA) 10 mg tablet TAKE 1 TABLET BY MOUTH TWICE DAILY 3 Active ascorbic acid (VITAMIN C ORAL) 1 tablet occ Active aspirin-acetami nophen-caffeine (EXCEDRIN MIGRAINE) 250-250-65 mg per tablet Take 1 tablet by mouth every 6 (six) hours if needed for headaches. Active carbidopa-levod opa (SINEMET) 25-100 mg per tablet Take 1 tablet by mouth 2 (two) times a day. 5 Active haloperidoL (HALDOL) 0.5 mg tablet Take 2 tablets (1 mg total) by mouth 2 (two) times a day. at bedtime 5 Active primidone (MYSOLINE) 50 mg tablet Take 1 tablet (50 mg total) by mouth at bedtime. at bedtime 5 Active sertraline (ZOLOFT) 50 mg tablet Take 1 tablet (50 mg total) by mouth at bedtime. Active amLODIPine (NORVASC) 2.5 mg tablet Take 1 tablet (2.5 mg total) by mouth 1 (one) time each day. 30 each 5 5 05/28/19 26 Active nystatin-triamc inolone (MYCOLOG II) ointment Apply a thin layer to affected area nightly 30 g 3 5 Active nystatin-triamc inolone (MYCOLOG II) ointment Apply a thin layer to affected area nightly 15 g 1 5 02/07/20 Discontinu ed(Reorder ) Active Problems Problem Noted Date Diagnosed Date Essential hypertension 11/28/2024 OAB (overactive bladder) 02/06/2024 Assessment & Plan (02/06/2024 1:02 PM EST): Continue to follow with Urology. Feeling of incomplete bladder emptying 4 Overview (12/24/2023): Last Assessment & Plan: I [...] and agreed. DNR (do not resuscitate) 05/10/2022 Behavioral disturbance due to late onset Alzheim er dementia 05/10/2022 Kyphoscoliosis 09/07/2018 Night sweats 09/07/2018 Vitamin D deficiency 12/29/2016 Paresthesia of hand, bilateral 12/23/2015 Osteoporosis 12/03/2014 Overview (12/24/2023): Refuses med. 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 Kyphosis deformity of spine 07/05/2005 11/28/2024 Encounters Date Type Department Care Team Description 02/06/2025 8:45 AM EST Office Visit Obstetrics and Gynecology [address] [id number] Thania Ferris, FLOYD Lichen sclerosus (Primary Dx) from Last 3 Months Immunizations Immunization Administration Dates Next Due H1N1 Inj Preservative Free 03/11/2009 Influenza Quadravalent, 0.5m l (Fluzone High-dose) 65yo and older 12/20/2022 Influenza Quadravalent, MDCK , 0.5ml, preservative free (Flucelvax) 6mo and older 12/03/2020,11/16/2018 Influenza Quadravalent, MDCK , 0.5ml, with preservative (Flucelvax) 6mo and older 11/21/2021,11/24/2019,12/04/2017,12/23,11/29/2015 Influenza trivalent, 0.5mL ( Fluad) 65yo and older 11/28/2024 Influenza trivalent, 0.5mL ( Fluzone High-dose) 65yo and older 12/22/2023 Influenza trivalent, with pr eservative (Fluzone; Afluria) [...] Date Site/Laterality Comments OVARIAN CYST REMOVAL PROCEDURE: FL OVARIAN CYSTECTOMY UNI/BI; COMMENT: also appendectomy TONSILLECTOMY childhood PROCEDURE: HISTORICAL TONSILLECTOMY Medical History Medical History Date Comments Migraines DX:Migraines Paresthesia of hand, bilateral 12/23/2015 D X:Paresthesia of hand, bilateral Osteoporosis 12/03/2014 DX:Osteoporosis; COMMENT: Refuses med. Takes Ca, vit D Hematochezia 01/18/2011 DX:Hematochezia; COMMENT: x1 Elevated BP without diagnosi s of hypertension 09/07/2018 DX:Elevated BP without diagn osis of hypertension Night sweats 09/07/2018 DX:Night sweats Kyphoscoliosis 09/07/2018 DX:Kyphoscoliosi s Essential hypertension 11/28/2024 Family History Medical History Relation Name Comments [...] kidney fa ilure, HTN, CHF, PVD, DM, [place] Sister 1 Alive Sister 2 Alive Sister 3 Alive Social History Tobacco Use Types Packs/Day Years Used Date Smoking Tobacco: Former Smokeless Tobacco: Never Tobacco Cessation:Counseling Given: Not Answered Alcohol Use Standard Drinks/Week Comments Yes 0 (1 standard drink = 0.6 oz pur e alcohol) Housing Instability Answer Date Recorde d Are you worried that in the next 2 months you may not have stable housing? No 11/28/2024 Food Access & Nutrition Answer Date Rec orded Do you have access to a vari ety of food including fruits and vegetables? Yes 11/28/2024 Access to Healthcare Answer Date Record ed Within the last 3 months, ho w many times did you visit the emergency department for your medical care? 0 11/28/2024 Health Literacy Answer Date Recorded How often do you need to hav e someone help you when you read instructions, pamphlets, or other written material from your doctor or pharmacy? Never 11/28/2024 Caregiver: How often do you need to have someone help you when you read instructions, pamphlets, or other written material from your doctor or pharmacy? Not on file 11/28/2024 Financial Risk Answer Date Recorded How hard is it for you to pa y for the very basics like food, housing, medical care, and air conditioning / heating? Not very hard 11/28/2024 Transportation Answer Date Recorded Has the lack of transportati on kept you from meetings, work, or from getting things needed for daily living? No Has the lack of transportati on kept you from medical appointments or from getting medications? No 11/28/2024 Social Isolation Answer Date Recorded How often do you feel lonely or isolated from th ose around you? Never 11/28/2024 Food Risk Answer Date Recorded Within the past 12 months we worried whether our food would run out before we got money to buy more. Never true 11/28/2024 Within the past 12 months th e food we bought just didn't last and we didn't have money to get more. Never true 11/28/2024 Dependent Care Answer Date Recorded Do you need help finding or paying for care for your loved ones. For example, child care coordinator or elderly care for an older adult? No 11/28/2024 Education Answer Date Recorded Do you think completing more education or training, like finishing a GED, going to college, or learning a trade, would be helpful for you? No 11/28/2024 Employment and Income Answer Date Recor ded During the last four weeks, have you been actively looking for work? No 11/28/2024 Living Situation Answer Date Recorded What is your living situation? Unrecognized valu e 11/28/2024 Comments No Sex and Gender Information Value [...] Sign Reading Time Taken Comments Blood Pressure 134/84 02/06/2025 8:42 AM EST Pulse 79 02/06/2025 8:42 AM EST Temperature 36.1 C (97 F) 11/28/2024 8:44 AM EDT Respiratory Rate 15 11/28/2024 8:44 AM EDT Oxygen Saturation 97% 11/28/2024 8:44 AM EDT Inhaled Oxygen Concentration - - Weight 68.5 kg (151 lb) 02/06/2025 8:42 AM EST Height 167.6 cm (5' 6 ) 11/28/2024 8:44 AM EDT Body Mass Index 24.37 11/28/2024 8:44 AM EDT Plan of Treatment Upcoming Encounters Date Type Department Care Team (Late st Contact Info) Description 03/18/2025 8:45 AM EST [facility] Visit [facility] [address] [place] [phone] Galen Ayala NP [address] [place] [phone] 05/28/2025 9:45 AM EDT Office Visit Adult [facility] [address] [place] [phone] Venkata Dent MD [address] [place], [place] Health Maintenance Due Date Last Done Comments Colorectal Cancer Screening: Colonoscopy 1955 Medicare Annual Wellness Visit 02/11/2024 02/10/2023 COVID-19 Vaccine ( season) 2024 12/28/2021, 01/16/2021, 07/03/2020, Additional history exists Hypertension/CHF/CAD Annual BMP Blood Test 05/09/2025 05/09/2024, 12/29/2023, 08/23/2022 Falls Risk Assessment 11/28/2025 11/28/2024, 023 Social Influencers of Health Screening 11/28/2025 11/28/2024 Breast Cancer Screening 11/03/2026 11/04/19 25, 10/22/2023, 10/22/2023, Additional history exists Cholesterol Screening (Lipid Panel) 08/24/2027 08/23/2022 Osteoporosis Screening (Bone Density Screening) 02/20/2031 02/20/2021, 08/18/2018, 01/27/2017 RSV Immunization Adult Patients (1 - 1-dose 75+ series) 2032 DTaP,Tdap,and Td Vaccines (3 - Td or Tdap) 02/10/2033 02/10/2023, 06/27/2012 Hepatitis C Screening Completed 09/22/2013 Zoster Vaccines Completed 09/24/2019, 05/23/2019 Pneumococcal Vaccine: 50+ Years Completed 02/10/2023, 02/21/2007 Depression Screening Completed 11/28/2024, 02/11/20 Influenza Vaccine Completed 11/28/2024, , 12/27/2022, Additional history exists HIB Vaccines Aged Out [...] Procedure Name Priority Date/Time Associated Diagnosis Comments MG MAMMO DIGITAL SCREENING W LEXA BILAT Routine 11/03/2024 9:31 AM EDT Encounter for screening mammogram for breast cancer COMPREHENSIVE METABOLIC PANEL Routine 05/09/2024 10:21 AM EST Muscle cramp Trochanteric bursitis of left hip DEPRESSION SCREENING Routine 02/10/2023 FALLS RISK ASSESSMENT Routine 02/10/2023 LIPID PANEL Routine 08/23/2022 DXA BONE DENSITY STUDY 1+ SITS AXIAL SKEL Routine 02/20/2021 2:30 PM EST Encounter for general adult medical examination without abnormal findings HEPATITIS C SCREENING Routine 09/22/2013 from Last 3 Months or Most Recently Relevant to Health Maintenance Results * MG Mammo Digital Screening w Lexa bilat (11/03/2024 9:31 AM EDT) Anatomical Region Laterality Modality Breast Bilateral Mammography 11/06/2024 8:01 AM EDT Impressions 11/06/2024 8:05 AM EDT Benign. BI-RADS CATEGORY: 1 - NEGATIVE RECOMMENDATION: Screening bilateral mammogram is recommended in 1 year. Mammo Location: [facility], [address] [place] [address], [id number], . -------- FINAL REPORT -------- Dictated By: Sobia Friend Dictated Date: 11/06/2024 08:01 ET Assigned Physician: Sobia Friend Reviewed and Electronically Signed By: Sobia Friend Signed Date: 11/06/2024 08:05 ET Workstation ID: [id number] Transcribed By: Self Edit Transcribed Date: 11/06/2024 08:01 ET Narrative 11/06/2024 8:05 AM EDT CLINICAL: 68 years old, Female, routine annual exam. COMPARISON: Mammograms dating back to 08/23/2020 with most recent of 10/22/2023. TECHNIQUE: Bilateral MLO and CC views were obtained digitally with 3-D mammogram (digital breast tomosynthesis). Computer-aided detection was utilized in evaluation of this exam (CAD). FINDINGS: There is no evidence of suspicious mass or architectural distortion. No worrisome calcifications are evident. There has been no significant change from prior exam(s). BREAST DENSITY: C - The breasts are heterogeneously dense which may obscure small masses. Procedure Note Sobia Friend MD - 11/06/2024 CLINICAL: 68 years old, Female, routine annual exam. COMPARISON: Mammograms dating back to 08/23/2020 with most recent of10/22/2023. TECHNIQUE: Bilateral MLO and CC views were obtained digitally with 3-Dmammogram (digital breast tomosynthesis). Computer-aided detection wasutilized in evaluation of this exam (CAD). FINDINGS: There is no evidence of suspicious mass or architectural distortion. Noworrisome calcifications are evident. There has been no significantchange from prior exam(s). BREAST DENSITY: C - The breasts are heterogeneously dense which mayobscure small masses. IMPRESSION: Benign. BI-RADS CATEGORY: 1 - NEGATIVE RECOMMENDATION: Screening bilateral mammogram is recommended in 1 year. Mammo Location: [facility], [address] [place] [address], [id number], . -------- FINAL REPORT -------- Dictated By: Sobia Friend Dictated Date: 11/06/2024 08:01 ET Assigned Physician: Sobia Friend Reviewed and Electronically Signed By: Sobia Friend Signed Date: 11/06/2024 08:05 ET Workstation ID: [id number] Transcribed By: Self Edit Transcribed Date: 11/06/2024 08:01 ET us Venkata Dent MD IMG BI PROCEDURES Final Result * Comprehensive metabolic panel (05/09/2024 10:21 AM EST) Sodium 140 133 - 145 mmol/L LAB CHEMISTRY METHOD 05/09/2024 4:52 PM [facility] Potassium 3.8 3.5 - 5.5 mmol/L LAB CHEMISTRY METHOD 05/09/2024 4:52 PM [facility] Chloride 106 96 - 110 mmol/L LAB CHEMISTRY METHOD 05/09/2024 4:52 PM [facility] CO2 26 21 - 32 mmol/L LAB CHEMISTRY METHOD 05/09/2024 4:52 PM [facility] Anion Gap 8 3 - 11 LAB CHEMISTRY METHOD 05/09/2024 4:52 PM [facility] Glucose 85 70 - 100 mg/dL LAB CHEMISTRY METHOD 05/09/2024 4:52 PM [facility] BUN 11 5 - 25 mg/dL LAB CHEMISTRY METHOD 05/09/2024 4:52 PM [facility] Creatinine 0.71 0.50 - 1.10 mg/dL LAB CHEMISTRY METHOD 05/09/2024 4:52 PM [facility] eGFR 94 >=60 mL/min/1. 73m2 LAB CHEMISTRY METHOD 05/09/2024 4:52 PM [facility] Comment:Calculation based on the Chronic Kidney Disease Epidemiology Collaboration (CKD-EPI) equation refit without adjustment for race. BUN/Creatinine Ratio 15.5 LAB CHEMISTRY METHOD 05/09/2024 4:52 PM [facility] Calcium 9.5 8.5 - 10.5 mg/dL LAB CHEMISTRY METHOD 05/09/2024 4:52 PM [facility] AST (SGOT) 23 10 - 42 unit/L LAB CHEMISTRY METHOD 05/09/2024 4:52 PM [facility] ALT (SGPT) 26 10 - 60 unit/L LAB CHEMISTRY METHOD 05/09/2024 4:52 PM [facility] Alkaline Phosphatase 84 42 - 121 unit/L LAB CHEMISTRY METHOD 05/09/2024 4:52 PM [facility] Total Protein 7.1 6.0 - 8.0 g/dL LAB CHEMISTRY METHOD 05/09/2024 4:52 PM [facility] Albumin 3.8 3.2 - 5.0 g/dL LAB CHEMISTRY METHOD 05/09/2024 4:52 PM [facility] Total Bilirubin 0.4 0.0 - 1.4 mg/dL LAB CHEMISTRY METHOD 05/09/2024 4:52 PM [facility] Blood Venous blood specimen / Unknown Venipuncture / Unknown 05/09/2024 10:21 AM EST 05/09/2024 10:21 AM EST Lenard SCHMIDT LAB BLOOD ORDERABLES Fin al Result [facility] [address] [place] [address], * Falls Risk Assessment (02/10/2023) Falls Risk Assessment abstracted Historical Provider MD HEALTH MAINTENANCE Final Result * Depression Screening (02/10/2023) Depression Screening abstracted Historical Provider MD HEALTH MAINTENANCE Final Result * (ABNORMAL) Lipid panel (08/23/2022) LDL/HDL Ratio 2 0 - 4 Triglycerides 68 0 - 150 mg/dL Cholesterol 245(A) 0 - 200 mg/dL HDL 112 >=40 mg/dL LDL Cholesterol 120(A) 0 - 100 mg/dL Blood Venous blood specimen / Unknown Historical Provider MD LAB BLOOD ORDERABLES Trinidad l Result * [...] should be classified as having osteoporosis. [facility] Department of Internal Medicine recommends using National [...] Smith should beclassified as having osteoporosis. [facility] Department of Internal Medicine recommendsusing National Osteoporosis [...] fracture risk by FRAX. Venkata Dent MD IMG DXA PROCEDURES Final Result * Hepatitis C Screening (09/22/2013) 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
== END 2025-03-04 09:21 | disposition home or self-care (01) ==
LOC: HO.HSM 08:55
PROVIDERS: PCP Internal Medicine; Visit Provider Registered Nurse
DX: G31.84 Mild cognitive impairment of uncertain or unknown etiology (principal); G20.C Parkinsonism, unspecified; R25.1 Tremor, unspecified; F32.A Depression, unspecified; F29 Unspecified psychosis not due to a substance or known physiological condition
CPT/HCPCS: 99214

== ENCOUNTER → 2025-03-04 08:55 | Outpatient (BNVA) | payer MEDICARE, SELFPAY | PROVIDERS: PCP Internal Medicine; Visit Provider Registered Nurse | DX: G31.84 Mild cognitive impairment of uncertain or unknown etiology (principal); R25.1 Tremor, unspecified; F32.A Depression, unspecified | CPT/HCPCS: 99212 ==